=== PATIENT | male | born 1990 | race Caucasian/White ===

== ENCOUNTER 2017-06-30 07:46 | Emergency (ER) | payer SELFPAY ==
[2017-06-30] MEDS ORDERED: LIDOCAINE 1% 20 ML MDV ONE (08:14)
--- NOTE | 2017-06-30 08:32 | ER ---
Nurse's Notes [facility] Name: Michael Guerrero Age: 26 yrs Sex: Male : 1990 Arrival Date: 06/30/2017 Time: 07:52 Bed 7 Private MD: Diagnosis: Celluliltis and abscess of the right anterior distal thigh Presentation: 06/30 08:03 Presenting complaint: Patient states: about 3 days ago i noticed like a pimple above my tw2 RIGHT knee, i popped it of course, now it is red, swollen, and draining. Transition of care: patient was not received from another setting of care. Onset of symptoms was June 30, 2017. Initial Sepsis Screen: Does the patient meet any 2 criteria? HR > 90 bpm. No. Patient's initial sepsis screen is negative. Does the patient have a suspected source of infection? Yes: Skin breakdown/wound. Care prior to arrival: None. 08:03 Method Of Arrival: Ambulatory tw2 08:03 Acuity: TR 4 tw2 Historical: - Allergies: 08:09 No Known Allergies; tw2 - Home Meds: 08:09 None [Active]; tw2 - PMHx: 08:09 None; tw2 - PSHx: 08:09 None; tw2 - Immunization history:: Adult Immunizations up to date, Last tetanus immunization: unknown. - Social history:: Smoking status: Patient uses tobacco products, smokes one pack cigarettes per day. Patient uses street drugs, marijuana, daily. Screenin:09 Abuse screen: Denies threats or abuse. Nutritional screening: No deficits noted. tw2 Tuberculosis screening: No symptoms or risk factors identified. Fall Risk None identified. Assessment: 08:06 General: Appears in no apparent distress. slender, Behavior is calm, cooperative, tw2 appropriate for age. Pain: Complains of pain in right quadriceps. Neuro: Level of Consciousness is awake, alert, obeys commands, Oriented to person, place, time, situation. Cardiovascular: Denies chest pain, shortness of breath, Capillary refill < 3 seconds Patient's skin is warm and dry. Respiratory: Airway is patent Respiratory effort is even, unlabored, Respiratory pattern is regular, symmetrical, Breath sounds are clear bilaterally. GI: No signs and/or symptoms were reported involving the gastrointestinal system. : No signs and/or symptoms were reported regarding the genitourinary system. EENT: No signs and/or symptoms were reported regarding the EENT system. Derm: Abscess located on right quadriceps. Musculoskeletal: Range of motion: intact in all extremities. 08:40 Reassessment: Patient appears in no apparent distress at this time. No changes from tw2 previously documented assessment. Patient and/or family updated on plan of care and expected duration. Pain level reassessed. Patient is alert, oriented x 3, equal unlabored respirations, skin warm/dry/pink. Patient states feeling better. Vital Signs: 08:05 BP 162 / 101; Pulse 107; Resp 17; Temp 98.3(O); Pulse Ox 98% on R/A; Weight 79.38 kg tw2 (R); Height 6 ft. 6 in. (198.12 cm) (R); Pain 6/10; 08:27 BP 146 / 87; Pulse 91; Resp 17; Pulse Ox 99% on R/A; Pain 5/10; tw2 08:05 Body Mass Index 20.22 (79.38 kg, 198.12 cm) tw2 ED Course: 07:52 Patient arrived in ED. na 07:59 Lesley Jacob, RN is Primary Nurse. tw2 08:05 Triage completed. tw2 08:05 Arm band placed on. tw2 08:06 Yared Amaya MD is Attending Physician. kdr 08:06 Placed in gown. Bed in low position. Call light in reach. Pulse ox on. NIBP on. Warm tw2 blanket given. 08:27 Assist provider with I \T\ D: of an abscess on right thigh Set up I\T\D tray. Performed by tw 2 Yared Amaya MD Dressing with Neosporin and 4X4s, coban wrap Patient tolerated well. Patient did not have IV access during this emergency room visit. Administered Medications: 08:15 Drug: Lidocaine (1 %) 5 ml {Note: per Dr. Amaya.} Volume: 20 ml; Route: Infiltration; tw2 Site: wound; 08:39 Follow up: Response: No adverse reaction tw2 Outcome: 08:31 Discharge ordered by . kdr 08:40 Discharged to home ambulatory. tw2 08:40 Condition: stable 08:40 Discharge instructions given to patient, Instructed on discharge instructions, follow up and referral plans. no drinking with medication, no driving heavy equipment, medication usage, wound care, Demonstrated understanding of instructions, follow-up care, medications, wound care, Prescriptions given X 3. 08:40 Patient left the ED. tw2 Signatures: Yared Amaya MD MD kdr Anderson, Lesley Brown RN RN tw2
--- NOTE | 2017-06-30 08:32 | EDPHYS ---
Physician Documentation [facility] Name: Michael Guerrero Age: 26 yrs Sex: Male : 1990 Arrival Date: 06/30/2017 Time: 07:52 Bed 7 Private MD: ED Physician Yared Amaya HPI: 06/30 08:22 This 26 yrs old Male presents to ER via Ambulatory with complaints of Abscess.kdr 08:22 The patient presents with an abscess of the right quadriceps, The patient presents with kdr cellulitis of the , the patient presents with a swollen area of the right leg. Description: The affected area is small, approximately 2 cm(s), confluent, irregular, localized, well demarcated, draining, erythematous, fluctuant, hot, pointed, raised, swollen, tense, warm. Onset: The symptoms/episode began/occurred gradually, 3 day(s) ago. Possible cause(s): unknown. Associated signs and symptoms: The patient has no apparent associated signs or symptoms. Modifying factors: the symptoms are alleviated by nothing, the symptoms are aggravated by nothing. Severity of symptoms: At their worst the symptoms were mild, moderate, just prior to arrival, in the emergency department the symptoms are unchanged. The patient has experienced a previous episode, last year, Had an abscess on his chin. The patient has not recently seen a physician. Historical: - Allergies: 08:09 No Known Allergies; tw2 - Home Meds: 08:09 None [Active]; tw2 - PMHx: 08:09 None; tw2 - PSHx: 08:09 None; tw2 - Immunization history:: Adult Immunizations up to date, Last tetanus immunization: unknown. - Social history:: Smoking status: Patient uses tobacco products, smokes one pack cigarettes per day. Patient uses street drugs, marijuana, daily. ROS: 08:22 Constitutional: Negative for fever, chills, and weight loss. kdr 08:22 Skin: Positive for abscess, cellulitis, erythema, swelling. Exam: 08:22 Constitutional: This is a well developed, well nourished patient who is awake, alert, kdr and in no acute distress. Head/Face: Normocephalic, atraumatic. Eyes: Pupils equal round and reactive to light, extra-ocular motions intact. Lids and lashes normal. Conjunctiva and sclera are non-icteric and not injected. Cornea within normal limits. Periorbital areas with no swelling, redness, or edema. 08:22 Skin: abscess, that is small, approximately 2 cm(s), cellulitis, that is moderate, confluent, well demarcated, on the right quadriceps, induration, that is moderate is noted, located on the right quadriceps. Vital Signs: 08:05 BP 162 / 101; Pulse 107; Resp 17; Temp 98.3(O); Pulse Ox 98% on R/A; Weight 79.38 kg tw2 (R); Height 6 ft. 6 in. (198.12 cm) (R); Pain 6/10; 08:27 BP 146 / 87; Pulse 91; Resp 17; Pulse Ox 99% on R/A; Pain 5/10; tw2 08:05 Body Mass Index 20.22 (79.38 kg, 198.12 cm) tw2 Procedures: 08:22 I \T\ D: Incision and drainage was performed for an abscess of the right right quadriceps kdr and right leg - anterior distal right thigh Prepped with Anesthetized with 2 ml's 1% Lidocaine. Incised with #11 blade. Drained small amount purulent fluid. serosanguinous fluid. bloody fluid. Dressing: sterile 4x4 gauze, the patient tolerated the procedure well. MDM: 08:22 Data reviewed: vital signs, nurses notes. Counseling: I had a detailed discussion with kdr the patient and/or guardian regarding: the historical points, exam findings, and any diagnostic results supporting the discharge/admit diagnosis, the need for outpatient follow up. 08:31 Patient medically screened. kdr 06/30 08:29 Order name: Wound dressing; Complete Time: 08:30 tw2 Administered Medications: 08:15 Drug: Lidocaine (1 %) 5 ml {Note: per Dr. Amaya.} Volume: 20 ml; Route: Infiltration; tw2 Site: wound; 08:39 Follow up: Response: No adverse reaction tw2 Disposition: 06/30/17 08:31 Discharged to Home. Impression: Celluliltis and abscess of the right anterior distal thigh. - Condition is Stable. - Discharge Instructions: Abscess, [id number]. - Prescriptions for Clindamycin HCl 300 mg Oral Capsule - take 1 capsule by ORAL route every 6 hours for 10 days; 40 capsule. Tramadol 50 mg Oral Tablet - take 1 tablet by ORAL route every 8 hours as needed; 12 tablet. Bactrim DS 800- 160 mg Oral Tablet - take 1 tablet by ORAL route every 12 hours for 10 days; 20 tablet. - Medication Reconciliation Form, Thank You Letter, Antibiotic Education, Work release form form. - Follow up: Private Physician; When: 2 - 3 days; Reason: If symptoms return, Further diagnostic work-up, Recheck today's complaints, Continuance of care, Re-evaluation by your physician. - Problem is new. - Symptoms have improved. Signatures: Yared Amaya MD MD kdr Wise, Tara RN RN tw2
== END 2017-06-30 08:40 | disposition home or self-care (01) ==
LOC: ER 07:46
DX: L02.415 Cutaneous abscess of right lower limb (principal); L03.115 Cellulitis of right lower limb; F17.210 Nicotine dependence, cigarettes, uncomplicated; F12.90 Cannabis use, unspecified, uncomplicated; F19.90 Other psychoactive substance use, unspecified, uncomplicated
CPT/HCPCS: 99284